=== PATIENT | male | born 1965 | race Hispanic/Latino ===

== ENCOUNTER 2021-03-15 11:25 | Emergency (ER) | payer BC ==
[~2021-03-15] VITALS: Ht 175.3 cm; Wt 87.5 kg
[2021-03-15] MEDS ORDERED: HYDROCODONE/APAP 5MG-325MG TAB PO ONE (11:45)
[2021-03-15] MEDS ORDERED: HYDROCODONE/APAP 5MG-325MG TAB ONE (11:49)
[2021-03-15] MEDS ORDERED: SILVER SULFADIAZINE 50GM CREAM TOP STA (11:57)
[2021-03-15] MEDS ORDERED: NAPROSYN500 MG PO (12:02)
[2021-03-15] MEDS ORDERED: SILVADENE20 GM TOP (12:02)
[2021-03-15] MEDS ORDERED: KEFLEX125 MG/5 M PO (12:06)
== END 2021-03-15 12:14 | disposition home or self-care (01) ==
LOC: FSED 11:36
DX: T23.202A Burn of second degree of left hand, unspecified site, initial encounter (principal); X17.XXXA Contact with hot engines, machinery and tools, initial encounter; I10 Essential (primary) hypertension; E11.9 Type 2 diabetes mellitus without complications
CPT/HCPCS: 99283